=== PATIENT | female | born 1950 | race Caucasian/White ===

== ENCOUNTER → 2021-07-16 10:29 | Outpatient (CLI) | payer MEDICARE, SELFPAY ==
[2021-07-16 13:56] LABS: Alanine Aminotransferase 73 IU/L (<35); Albumin 4.6 g/dL (3.5-5.0); Albumin Globulin Ratio 1.4 (1.0-2.8); Alkaline Phosphatase 67 U/L (38-126); Aspartate Aminotransferase 77 IU/L (14-36); BUN Creatinine Ratio 21.6 (6-22); Bilirubin Total 0.7 mg/dL (0.2-1.3); Blood Urea Nitrogen 16 mg/dL (7-17); Calcium 10.2 mg/dL (8.4-10.2); Carbon Dioxide 27 mmol/L (22-32); Chloride 103 mmol/L (98-107); Cholesterol 188 mg/dL (140-199); Estimated Glomerular Filt Rate > 60.0 mL/min (>60); Globulin 3.2 g/dL (1.7-4.1); Glucose 124 mg/dL (80-110); HDL Cholesterol 34 mg/dL (40-60); HEMOLYSIS < 15 (0-50); LDL Cholesterol Calculated 80 mg/dL (<100); Potassium 4.3 mmol/L (3.4-5.1); Sodium 140 mmol/L (137-145); Total Protein 7.8 g/dL (6.3-8.2); Triglycerides 371 mg/dL (35-150)
[2021-07-16 15:22] LABS: Microalbumin Urine Random 1.3 mg/dL (0-1.6)
== END ==
PROVIDERS: PCP Family Medicine; Referring Provider Family Medicine; Visit Provider Family Medicine
DX: E11.9 Type 2 diabetes mellitus without complications (principal)
CPT/HCPCS: 36415; 80053; 80061; 82043; 82570; 83036

== ENCOUNTER → 2021-07-23 15:40 | Outpatient (CLI) | payer MEDICARE, SELFPAY ==
--- NOTE | 2021-07-23 15:44 | DI.US.S_ITS ---
PROCEDURE: US CAROTID DOPPLER BI INDICATIONS: DIZZY TECHNIQUE: Color and pulse Doppler interrogation was performed of both carotid systems, with image documentation and velocity measurements. COMPARISON: None. FINDINGS: Stenosis calculations are based on SRU (Society of Radiologists in Ultrasound) criteria. Right side: Brachial blood pressure: 138/80 mm Hg. Common carotid artery peak systolic velocity: 117 cm/sec. Internal carotid artery peak systolic velocity: 134 cm/sec. Internal carotid artery end diastolic velocity: 39 cm/sec. External carotid artery peak systolic velocity: 99 cm/sec. ICA/CCA peak systolic ratio: 1.2 Smith scale imaging description: Mild atherosclerotic changes are seen. Percent internal carotid artery stenosis: 50-69% by velocity criteria. Vertebral artery: Flow direction is antegrade. Left side: Brachial blood pressure: 140/77 mm Hg. Common carotid artery peak systolic velocity: 147 cm/sec. Internal carotid artery peak systolic velocity: 130 cm/sec. Internal carotid artery end diastolic velocity: 32 cm/sec. External carotid artery peak systolic velocity: 89 cm/sec. ICA/CCA peak systolic ratio: 0.9 Smith scale imaging description: Minimal atherosclerotic change can be seen. Percent internal carotid artery stenosis: 50-69% by velocity criteria. Vertebral artery: Flow direction is antegrade. IMPRESSION: Moderate stenosis can be seen involving each proximal internal carotid artery, which are rated by velocity criteria to be between 50 and 69%.The true degree of stenosis is felt most likely to be at the lower end of this range. Dictated by: Fidencio Brock M.D. on 07/23/2021 at 15:39 Approved by: Fidencio Brock M.D. on 07/23/2021 at 15:40
--- NOTE | 2021-07-23 16:26 | DI.RAD.S_ITS ---
PROCEDURE: XR CERVICAL SPINE 2V OR 3V INDICATIONS: dizzy TECHNIQUE: 3 view(s) of the cervical spine were acquired. COMPARISON: None. FINDINGS: Bones: No fractures or dislocations to the T1 level. Multilevel disc space narrowing and endplate osteophyte formation, worst at C3-C4, C4-C5, and C5-C6, indicating degenerative disc disease. Facet hypertrophy throughout the mid and lower cervical spine. Mild grade 1 retrolisthesis of C4 on C5. The lateral masses of C1 appear intact on the odontoid view. No suspicious bony lesions. Soft tissues: No prevertebral soft tissue swelling. IMPRESSION: Multilevel degenerative disc and facet disease. No acute fracture. No osseous lesion. If symptoms and/or clinical suspicion for pathology persist, further assessment with repeat, or advanced imaging (e.g., CT, MRI, or bone scan) may be helpful for further assessment. Dictated by: Sara Marinelli M.D. on 07/23/2021 at 16:39 Approved by: Sara Marinelli M.D. on 07/23/2021 at 16:40
== END ==
PROVIDERS: PCP Family Medicine; Referring Provider Family Medicine; Visit Provider Family Medicine
DX: I65.23 Occlusion and stenosis of bilateral carotid arteries (principal); M50.31 Other cervical disc degeneration, high cervical region; R42 Dizziness and giddiness
CPT/HCPCS: 72040; 93880

== ENCOUNTER → 2022-02-06 10:22 | Outpatient (CLI) | payer MEDICARE, SELFPAY ==
[2022-02-06 12:42] LABS: Alanine Aminotransferase 89 IU/L (<35); Albumin 4.4 g/dL (3.5-5.0); Albumin Globulin Ratio 1.3 (1.0-2.8); Alkaline Phosphatase 61 U/L (38-126); Aspartate Aminotransferase 113 IU/L (14-36); Bilirubin Total 0.5 mg/dL (0.2-1.3); Blood Urea Nitrogen 15 mg/dL (7-17); Calcium 9.4 mg/dL (8.4-10.2); Carbon Dioxide 28 mmol/L (22-32); Chloride 102 mmol/L (98-107); Estimated Glomerular Filt Rate > 60 mL/min (>60); Globulin 3.3 g/dL (1.7-4.1); Glucose 140 mg/dL (80-110); HEMOLYSIS < 15 (0-50); Potassium 4.2 mmol/L (3.4-5.1); Sodium 138 mmol/L (137-145); Total Protein 7.7 g/dL (6.3-8.2)
== END ==
PROVIDERS: PCP Family Medicine; Referring Provider Family Medicine; Visit Provider Family Medicine
DX: E11.9 Type 2 diabetes mellitus without complications (principal)
CPT/HCPCS: 36415; 80053; 83036

== ENCOUNTER → 2022-05-11 10:27 | Outpatient (CLI) | payer MEDICARE, SELFPAY ==
[2022-05-11 11:27] LABS: Hemoglobin A1C% w Est Avg Glu 7.4 % (4.0-6.0)
[2022-05-11 11:44] LABS: Alanine Aminotransferase 79 IU/L (<35); Albumin 4.6 g/dL (3.5-5.0); Albumin Globulin Ratio 1.3 (1.0-2.8); Alkaline Phosphatase 68 U/L (38-126); Aspartate Aminotransferase 109 IU/L (14-36); Bilirubin Total 0.6 mg/dL (0.2-1.3); Bilirubin Unconjugated 0.6 mg/dL (0.0-1.1); Blood Urea Nitrogen 19 mg/dL (7-17); Calcium 9.7 mg/dL (8.4-10.2); Carbon Dioxide 26 mmol/L (22-32); Chloride 101 mmol/L (98-107); Cholesterol 185 mg/dL (140-199); Estimated Glomerular Filt Rate > 60 mL/min (>60); Globulin 3.6 g/dL (1.7-4.1); Glucose 143 mg/dL (80-110); HDL Cholesterol 31 mg/dL (40-60); HEMOLYSIS < 15 (0-50); Potassium 4.2 mmol/L (3.4-5.1); Sodium 138 mmol/L (137-145); Total Protein 8.2 g/dL (6.3-8.2); Triglycerides 456 mg/dL (35-150)
== END ==
PROVIDERS: PCP Family Medicine; Referring Provider Family Medicine; Visit Provider Family Medicine
DX: E11.9 Type 2 diabetes mellitus without complications (principal); K76.0 Fatty (change of) liver, not elsewhere classified
CPT/HCPCS: 36415; 80053; 80061; 80076; 83036

== ENCOUNTER → 2022-05-26 12:07 | Outpatient (CLI) | payer MEDICARE, SELFPAY ==
--- NOTE | 2022-05-26 12:08 | DI.US.S_ITS ---
PROCEDURE: US ABDOMEN LIMITED INDICATIONS: FATTY LIVER TECHNIQUE: Real-time focused scanning was performed of the abdomen, with image documentation. COMPARISON: None. FINDINGS: The liver demonstrates mildly enlarged size. The liver demonstrates generalized moderately increased echogenicity. This decreases ultrasound sensitivity for detection of hepatic masses. A 3 mm mobile gallstone can be seen. The gallbladder wall is not thickened, measuring 3 mm or less. No specific pericholecystic fluid is seen. The sonographic Retana sign is negative. There is no biliary dilatation, the common bile duct measures 3-4 mm. The pancreas is not well seen, secondary to overlying bowel gas. IMPRESSION: An enlarged, fatty liver can be seen. A single mobile gallstone is seen, yet without additional sonographic signs of cholecystitis. Negative for biliary dilatation. Please correlate with physical examination findings, patient presentation, and laboratory values. Dictated by: Fidencio Brock M.D. on 05/26/2022 at 11:53 Approved by: Fidencio Brock M.D. on 05/26/2022 at 11:54
== END ==
PROVIDERS: PCP Family Medicine; Referring Provider Family Medicine; Visit Provider Family Medicine
DX: K76.0 Fatty (change of) liver, not elsewhere classified (principal); K80.20 Calculus of gallbladder without cholecystitis without obstruction
CPT/HCPCS: 76705

== ENCOUNTER 2022-07-20 12:42 | Emergency (ER) | payer MEDICARE, SELFPAY ==
[2022-07-20 12:57] VITALS: BP 143/63; PULSE 88; RESP 18; TEMP 37.1; O2SAT 97; BMI 31.1
--- NOTE | 2022-07-20 13:02 | DI.RAD.S_ITS ---
PROCEDURE: XR CHEST 1V INDICATIONS: chest pain TECHNIQUE: One view of the chest was acquired. COMPARISON: None. FINDINGS: Surgical changes and devices: None. Lungs and pleura: Lungs are clear. No pleural effusions or pneumothorax. Mediastinum: Mediastinal contours appear normal. Heart size is normal. Bones and chest wall: No suspicious bony lesions. Overlying soft tissues appear unremarkable. IMPRESSION: No acute cardiopulmonary abnormality. Dictated by: Nino Uriostegui M.D. on 07/20/2022 at 13:37 Approved by: Nino Uriostegui M.D. on 07/20/2022 at 13:42
[2022-07-20 13:35] LABS: Add Manual Diff / Slide Review NO; Basophils Absolute Auto 0 /uL (0-100); Basophils Percent Auto 0.6 % (0-2); Eosinophils Absolute Auto 100 /uL (0-450); Eosinophils Percent Auto 1.8 % (2-4); Hematocrit 34.8 % (36-46); Hemoglobin 11.5 g/dL (12.0-16.0); Lymphocytes Absolute Auto 1200 /uL (1100-4500); Lymphocytes Percent Auto 22.6 % (25-40); Mean Corpuscular HGB Conc 33.1 % (30-36); Mean Corpuscular Hemoglobin 26.8 PG (26-34); Monocytes Absolute Auto 400 /uL (0-900); Monocytes Percent Auto 7.1 % (3-14); Neutrophils Absolute Auto 3700 /uL (1500-7000); Neutrophils Percent Auto 67.9 % (50-75); Platelet Count 208 X10^3/uL (150-400); Red Cell Distribution Width 15.4 % (11.6-14.8); White Blood Cell Count 5.4 X10^3/uL (4.5-11.0)
[2022-07-20 13:47] LABS: Alanine Aminotransferase 90 IU/L (<35); Albumin 4.7 g/dL (3.5-5.0); Albumin Globulin Ratio 1.2 (1.0-2.8); Alkaline Phosphatase 60 U/L (38-126); Aspartate Aminotransferase 112 IU/L (14-36); BUN Creatinine Ratio 28.8 (6-22); Bilirubin Total 0.6 mg/dL (0.2-1.3); Blood Urea Nitrogen 19 mg/dL (7-17); Calcium 10.2 mg/dL (8.4-10.2); Carbon Dioxide 24 mmol/L (22-32); Chloride 101 mmol/L (98-107); Creatine Kinase 48 U/L (30-135); Estimated Glomerular Filt Rate > 60 mL/min (>60); Globulin 3.9 g/dL (1.7-4.1); Glucose 124 mg/dL (80-110); HEMOLYSIS < 15 (0-50); INR 1.1 (0.9-1.3); Lipase 209 U/L (23-300); Magnesium 1.5 mg/dL (1.6-2.3); Potassium 4.2 mmol/L (3.4-5.1); Sodium 140 mmol/L (137-145); Total Protein 8.6 g/dL (6.3-8.2)
[2022-07-20 13:49] LABS: PTT Partial Thromboplastin Tim 28 SECONDS (26-36)
[2022-07-20 13:57] LABS: Troponin I < 0.012 ng/mL (0.01-0.034)
[2022-07-20 14:44] LABS: Appearance Urine UA CLEAR; Bilirubin Urine UA NEGATIVE (NEGATIVE); Color Urine UA LT. YELLOW; Glucose Urine UA 3+ g/dL (Negative); Ketones Urine UA TRACE (NEGATIVE); Leukocyte Esterase Urine UA NEGATIVE (NEGATIVE); Nitrite Urine UA NEGATIVE (Negative); Occult Blood Urine UA NEGATIVE (Negative); Protein Urine UA NEGATIVE (Negative); Urobilinogen Urine UA 0.2 E.U./dL (0.2)
[2022-07-20 14:45] LABS: pH Urine UA 5.5 (4.5-8.0)
[2022-07-20 14:52] LABS: Bacteria Urine Moderate (10-30); Culture Indicated Urine Specimen Cultured; RBC Urine None Seen (0-5/HPF); Squamous Epithelial Cell Urine 5-10 /HPF (0-5/HPF); WBC Urine 5-10/HPF (0-5/HPF)
[2022-07-20 15:03] LABS: COVID19 -Nasal RAPID Negative (Negative)
--- NOTE | 2022-07-20 15:36 | DI.CT.S_ITS ---
PROCEDURE: CT HEAD/BRAIN WO CON INDICATIONS: dizzy syncope TECHNIQUE: Noncontrast 4.5 mm thick angled axial sections acquired from the foramen magnum to the vertex, with coronal and sagittal reformats. For radiation dose reduction, the following was used: automated exposure control, adjustment of mA and/or kV according to patient size. COMPARISON: None. FINDINGS: Image quality: Excellent. CSF spaces: Basal cisterns are patent. No extra-axial fluid collections. The ventricles are symmetric in size and shape. Brain: No intracranial bleeds or masses. There is cerebral volume loss for age, with resultant ventricular and sulcal prominence. There are periventricular and deep white matter chronic small vessel ischemic changes. There is intracranial internal carotid artery atherosclerosis. Skull and face: Calvarium and visualized facial bones appear intact, without suspicious lesions. Sinuses: Visualized sinuses and mastoids are clear. IMPRESSION: No evidence acute intracranial process. Dictated by: Michael Kathleen M.D. on 07/20/2022 at 16:39 Approved by: Michael Kathleen M.D. on 07/20/2022 at 16:39
--- NOTE | 2022-07-20 15:37 | ED_ITS ---
HPI - Dizziness General Chief Complaint: Dizziness Stated Complaint: Feels like passing out Time Seen by Provider: 07/20/22 13:24 Mode of arrival: Family Vehicle History of Present Illness HPI Narrative: Patient is a 72-year-old female history of diabetes hyperlipidemia fatty liver presenting today with dizziness. According to previous PCP note 1 year ago she was reported having dizziness at that time. Around [place] time she had a syncopal episode while sitting down thought to be related to a UTI which was diagnosed later in your jaw on the 04 of July. She was dizzy and lightheaded and Celi she went to an emergency department in [place] she was not seen for her syncopal episode in May there she reportedly had a full workup and diagnosed with a UTI put on about 10-14 days of cephalexin which she finished last week. Denies any fever chills painful frequent urination vaginal itching abdominal pain nausea vomiting. Though she is had dizziness on and off for awhile. She previously had a carotid Doppler which did show moderate stenos is of 50-69%. Related Data Previous Rx's Medication Instructions Recorded citalopram 20 mg tablet 20 mg PO DAILY #90 tabs 08/12/21 citalopram 40 mg tablet 40 mg PO DAILY #90 tabs 08/12/21 fenofibric acid (choline) 135 mg 135 mg PO DAILY #90 caps 08/12/21 capsule,delayed release lisinopril 2.5 mg tablet 2.5 mg PO DAILY #90 tabs 08/12/21 omega-3 acid ethyl esters 1 gram 2 cap PO DAILY #180 caps 08/12/21 capsule atorvastatin 80 mg tablet 80 mg PO DAILY #90 tabs 05/12/22 empagliflozin 25 mg tablet See Rx Instructions .Route 06/12/22 (Jardiance) .COMPLEX #90 tabs metformin 1,000 mg tablet 1,000 mg PO BID #180 tabs 06/30/22 Allergies Allergy/AdvReac Type Severity Reaction Status Date / Time No Known Drug Allergies Allergy Verified 07/20/22 13:01 Review of Systems Review of Systems ROS Unobtainable: All systems reviewed & are unremarkable except as noted in HPI and below Patient History Medical History Depression (~1959) Diabetes mellitus (~2004) Foot pain (~2018) Hepatitis A (~1967) Hyperlipidemia (~1986) Irritable bowel syndrome (~1969) Osteoporosis (~2009) Scoliosis (~1994) Shoulder pain (~1999) Steatosis of liver Surgical History Anesthesia H/O skin graft (~1956) History of appendectomy (~2005) History of facelift (~1992) History of tonsillectomy (~1959) Hx of cataract surgery (~1999) Family History Father Heart disease Hypertension Mental health disorder Mother Alzheimer's dementia Brother Mental health disorder Hypertension High cholesterol Brother Pulmonary embolism Mental health disorder Social History Smoking Status: Never smoker second hand exposure: No alcohol intake: current substance use type: does not use Smoking Status: Never smoker alcohol intake frequency: 0-2 drinks per day Substance Use Type: does not use Exam Initial Vital Signs Initial Vital Signs: Vital Signs Temperature 98.7 F 07/20/22 12:57 Pulse Rate 88 07/20/22 12:57 Respiratory Rate 18 07/20/22 12:57 Blood Pressure 143/63 H 07/20/22 12:57 Pulse Oximetry 97 07/20/22 12:57 Oxygen Delivery Method 07/20/22 12:57 GENERAL: Alert pleasant 72-year-old female and in no acute distress. HEENT: Head atraumatic,EOMI, pupils reactive, face symmetric, moist mucous membranes CARDIOVASCULAR: Regular rate and rhythm without murmurs, rubs or gallops. RESPIRATORY: Breath sounds equal bilaterally, no wheezes rales or rhonchi. ABDOMEN: Soft, nontender. Normoactive bowel sounds all 4 quadrants. No guarding or rebound. EXTREMITIES: Normal range of motion, no clubbing or edema. Neurovascularly intact NEUROLOGICAL: Alert and oriented x4.Normal gait and speech. Cranial nerves II through XII grossly intact. Good [id number], good [id number]-[id number], strength equal bilaterally, no dysarthria or aphasia, sensation in tact to soft touch bilaterally, no visual changes, no facial droop SKIN: Warm, dry, no laceration, no petechiae, no rashes or lesions. Scores NIH Stroke Scale Level of Conciousness: Alert, keenly responsive Ask month/age: Answers both questions correctly. Open/close eyes, close hand: Performs both tasks correctly Best gaze horizontal: Normal Visual cannon: No visual loss Facial palsy: Normal symetrical movement Left arm drift: No drift for full 10 sec Right arm drift: No drift for full 10 sec Left leg drift: No drift for full 5 sec Right leg drift: No drift for full 5 sec Limb ataxia: Absent Sensory on face/arms/legs: Normal, no sensory loss Best language: No aphasia, normal Dysarthria: Normal Extinction or inattention: No abnormality Total NIH Stroke scale score: 0 Course Orders Ordered: ED Orders 07/20/22 13:00 Urinalysis and Microscopic Stat Urine Culture Stat 07/20/22 13:02 XR chest 1V Stat EKG-12 Lead Stat 07/20/22 13:20 Complete Blood Count AUTO DIFF Stat Comprehensive Metabolic Panel Stat Lipase Stat Magnesium Stat Partial Thromboplastin Time Stat Prothrombin Time INR Stat Troponin & CK Cardiac Panel Stat 07/20/22 14:40 COVID19 -Nasal RAPID/Pre-Proc Stat 07/20/22 15:36 CT head/brain wo con Stat Discontinued Medications Aspirin (Aspirin 81 Mg Chew Tab) 324 mg PO NOW ONE Stop: 07/20/22 13:03 Last Admin: 07/20/22 15:45 Dose: Not Given Documented By: SB Vital Signs Vital signs: Vital Signs - 8 hr 07/20/22 12:57 07/20/22 17:30 07/20/22 17:23 Temperature 98.7 F Pulse Rate 88 83 82 Respiratory Rate 18 Blood Pressure 143/63 H 113/59 L Pulse Oximetry 97 94 94 Oxygen Delivery Method Room Air Room Air MDM - Dizziness Lab Data Result diagrams: 07/20/22 13:20 07/20/22 13:20 Labs: Lab Results 07/20/22 07/20/22 07/20/22 Range/Units 13:00 13:20 13:20 WBC 5.4 (4.5-11.0) X10^3/uL RBC 4.30 (4.0-5.2) X10^6/uL Hgb 11.5 L (12.0-16.0) g/dL Hct 34.8 L (36-46) % MCV 81.0 (80-100) fL MCH 26.8 (26-34) PG MCHC 33.1 (30-36) % RDW 15.4 H (11.6-14.8) % Plt Count 208 (150-400) X10^3/uL Neut % (Auto) 67.9 (50-75) % Lymph % (Auto) 22.6 L (25-40) % [place] % (Auto) 7.1 (3-14) % Eos % (Auto) 1.8 L (2-4) % Baso % (Auto) 0.6 (0-2) % Neut # (Auto) 3700 (9808-8339) /uL Lymph # (Auto) 1200 (2044-3775) /uL [place] # (Auto) 400 (0-900) /uL Eos # (Auto) 100 (0-450) /uL Baso # (Auto) 0 (0-100) /uL PT 13.0 H (10.1-12.7) SECONDS INR 1.1 (0.9-1.3) APTT 28 (26-36) SECONDS Sodium (137-145) mmol/L Potassium (3.4-5.1) mmol/L Chloride (98-107) mmol/L Carbon Dioxide (22-32) mmol/L BUN (7-17) mg/dL Creatinine (0.52-1.04) mg/dL Estimated GFR (>60) mL/min BUN/Creatinine Ratio (6-22) Glucose (80-110) mg/dL Calcium (8.4-10.2) mg/dL Magnesium (1.6-2.3) mg/dL Total Bilirubin (0.2-1.3) mg/dL AST (14-36) IU/L ALT (<35) IU/L Alkaline Phosphatase (38-126) U/L Total Creatine Kinase (30-135) U/L CK-MB (CK-2) CK-MB (CK-2) Rel Index Troponin I (0.01-0.034) ng/mL Total Protein (6.3-8.2) g/dL Albumin (3.5-5.0) g/dL Globulin (1.7-4.1) g/dL Albumin/Globulin Ratio (1.0-2.8) Lipase (23-300) U/L Urine Color Lt. yellow Urine Appearance Clear Urine pH 5.5 (4.5-8.0) Ur Specific [place] 1.020 (1.000-1.035) Urine Protein Negative (Negative) Urine Glucose (UA) 3+ H (Negative) g/dL Urine Ketones Trace H (NEGATIVE) Urine Occult Blood Negative (Negative) Urine Nitrate Negative (Negative) Urine Bilirubin Negative (NEGATIVE) Urine Urobilinogen 0.2 (0.2) E.U./dL Ur Leukocyte Esterase Negative (NEGATIVE) Urine RBC None seen (0-5/HPF) Urine WBC 5-10/hpf H (0-5/HPF) Ur Squamous Epith Cells 5-10 /hpf H (0-5/HPF) Urine Bacteria Moderate (10-30) H (None) Urine Yeast 1-5/hpf H (None) Ur Culture Indicated? Specimen cultured SARS-CoV-2 (PCR) (Negative) 07/20/22 07/20/22 Range/Units 13:20 14:40 WBC (4.5-11.0) X10^3/uL RBC (4.0-5.2) X10^6/uL Hgb (12.0-16.0) g/dL Hct (36-46) % MCV (80-100) fL MCH (26-34) PG MCHC (30-36) % RDW (11.6-14.8) % Plt Count (150-400) X10^3/uL Neut % (Auto) (50-75) % Lymph % (Auto) (25-40) % [place] % (Auto) (3-14) % Eos % (Auto) (2-4) % Baso % (Auto) (0-2) % Neut # (Auto) (3219-4934) /uL Lymph # (Auto) (3080-0749) /uL [place] # (Auto) (0-900) /uL Eos # (Auto) (0-450) /uL Baso # (Auto) (0-100) /uL PT (10.1-12.7) SECONDS INR (0.9-1.3) APTT (26-36) SECONDS Sodium 140 (137-145) mmol/L Potassium 4.2 (3.4-5.1) mmol/L Chloride 101 (98-107) mmol/L Carbon Dioxide 24 (22-32) mmol/L BUN 19 H (7-17) mg/dL Creatinine 0.66 (0.52-1.04) mg/dL Estimated GFR > 60 (>60) mL/min BUN/Creatinine Ratio 28.8 H (6-22) Glucose 124 H (80-110) mg/dL Calcium 10.2 (8.4-10.2) mg/dL Magnesium 1.5 L (1.6-2.3) mg/dL Total Bilirubin 0.6 (0.2-1.3) mg/dL AST 112 H (14-36) IU/L ALT 90 H (<35) IU/L Alkaline Phosphatase 60 (38-126) U/L Total Creatine Kinase 48 (30-135) U/L CK-MB (CK-2) TNP CK-MB (CK-2) Rel Index TNP Troponin I < 0.012 (0.01-0.034) ng/mL Total Protein 8.6 H (6.3-8.2) g/dL Albumin 4.7 (3.5-5.0) g/dL Globulin 3.9 (1.7-4.1) g/dL Albumin/Globulin Ratio 1.2 (1.0-2.8) Lipase 209 (23-300) U/L Urine Color Urine Appearance Urine pH (4.5-8.0) Ur Specific [place] (1.000-1.035) Urine Protein (Negative) Urine Glucose (UA) (Negative) g/dL Urine Ketones (NEGATIVE) Urine Occult Blood (Negative) Urine Nitrate (Negative) Urine Bilirubin (NEGATIVE) Urine Urobilinogen (0.2) E.U./dL Ur Leukocyte Esterase (NEGATIVE) Urine RBC (0-5/HPF) Urine WBC (0-5/HPF) Ur Squamous Epith Cells (0-5/HPF) Urine Bacteria (None) Urine Yeast (None) Ur Culture Indicated? SARS-CoV-2 (PCR) Negative (Negative) Imaging Data CT scan - head: Radiologist's Impression: ent: Naomi Rivas MR#: [id number] : 1950 Acct:[id number] Age/Sex: 72 / F Date of Service: 07/20/22 Loc: ED Accession Number: [id number] ?? Procedure: CT head/brain wo con Ordering Provider: Zena Alston D.O. PROCEDURE:? CT HEAD/BRAIN WO CON ? INDICATIONS:? dizzy syncope ? TECHNIQUE:? Noncontrast 4.5 mm thick angled axial sections acquired from the foramen magnum to the vertex, with coronal and sagittal reformats.? For radiation dose reduction, the following was used:? automated exposure control, adjustment of mA and/or kV according to patient size.? ? COMPARISON:? None. ? FINDINGS:? Image quality:? Excellent.? ? CSF spaces:? Basal cisterns are patent.? No extra-axial fluid collections.? The ventricles are symmetric in size and shape.? ? Brain:? No intracranial bleeds or masses.? There is cerebral volume loss for age, with resultant ventricular and sulcal prominence.? There are periventricular and deep white matter chronic small vessel ischemic changes.? There is intracranial internal carotid artery atherosclerosis.? ? Skull and face:? Calvarium and visualized facial bones appear intact, without suspicious lesions.? ? Sinuses:? Visualized sinuses and mastoids are clear.? ? IMPRESSION:? No evidence acute intracranial process. ? ? Dictated by: Michael Kathleen M.D. on 07/20/2022 at 16:39 ? ? Approved by: Michael Kathleen M.D. on 07/20/2022 at 16:39 ? Chest x-ray: Radiologist's Impression: Signed Patient: Naomi Rivas MR#: [id number] : 1950 Acct:[id number] Age/Sex: 72 / F Date of Service: 07/20/22 Loc: ED Accession Number: [id number] ?? Procedure: XR chest 1V Ordering Provider: Zena Aslton D.O. PROCEDURE:? XR CHEST 1V ? INDICATIONS:? chest pain ? TECHNIQUE:? One view of the chest was acquired.? ? COMPARISON:? None. ? FINDINGS:? ? Surgical changes and devices:? None.? ? Lungs and pleura:? Lungs are clear.? No pleural effusions or pneumothorax.? ? Mediastinum:? Mediastinal contours appear normal.? Heart size is normal.? ? Bones and chest wall:? No suspicious bony lesions.? Overlying soft tissues priyank ear unremarkable.? ? IMPRESSION:? No acute cardiopulmonary abnormality. ? ? ? Dictated by: Nino Uriostegui M.D. on 07/20/2022 at 13:37 ? ? Approved by: Nino Uriostegui M.D. on 07/20/2022 at 13:42 ? ECG Data Interpretation: Normal sinus rhythm rate 81 MO interval 168 QRS [address] changes Q-wave noted in lead 3 low voltage noted no ischemic changes MDM Narrative Medical decision making narrative: Patient is a 72-year-old female presenting today with dizziness. She did not feel quite right today. But did not pass out. She previously had a UTI she is treated with cephalexin. No evidence sepsis today. Previous workup of her longstanding dizziness according to the chart did show some moderate stenosis of her carotids. This will need to be looked at again as an outpatient. Hesitant to put her on another course of antibiotics after she just finished what seems to be a really long course without any signs of sepsis. Will wait for urine culture and sensitivity. Patient is not any symptomatic from this either MDM * differential diagnosis includes but not limited to: Vertigo, non vertigo, carotid stenosis, UTI, sepsis * Prior records reviewed: Previous PCP note from 1 year ago * My lab interpretation: A no leukocytosis renal function electrolytes within normal limits magnesium slightly low 1.5, urine does show wbc's with bacteria and yeast questionable clean catch wait for culture and sensitivity * My imaging interpretation: As above * Clinical Decision Rules/Scores evaluated: [ ] * Independent discussions with: [ ] * Social Considerations: [ ] * Shared Decision Making: Daughter and patient *Disposition: see below, along with detailed discharge instructions that have been reviewed with patient as well as indications for ED re-evaluation and additional outpatient follow up Discharge Plan Departure Patient Disposition: Home Clinical Impression: Dizziness Instructions: DI for Vertigo Activity Restrictions/Additional Instructions: *You have been diagnosed with dizziness *What to do: At this time for your urine culture to see if you need any more antibiotics. I do recommend that he talk to your primary care provider about a repeat carotid Doppler ultrasound. Blood work and head CT are overall reassuring today. *Continue to take medications as directed *Follow up with your primary care provider in 2-3 days or call [phone] *Return to ER if you should have dizziness passing out fever confusion or any new, worsening or concerning symptoms Prescriptions: No Action citalopram 20 mg tablet 20 mg PO DAILY Qty: 90 3RF citalopram 40 mg tablet 40 mg PO DAILY Qty: 90 3RF lisinopril 2.5 mg tablet 2.5 mg PO DAILY Qty: 90 3RF fenofibric acid (choline) 135 mg capsule,delayed release(DR/EC) 135 mg PO DAILY Qty: 90 3RF omega-3 acid ethyl esters 1 gram capsule 2 cap PO DAILY Qty: 180 3RF atorvastatin 80 mg tablet 80 mg PO DAILY Qty: 90 2RF Jardiance 25 mg tablet See Rx Instructions .ROUTE .COMPLEX Qty: 90 0RF Dose Instruction: TAKE 1 TABLET BY MOUTH DAILY Rx Instructions: TAKE 1 TABLET BY MOUTH DAILY metformin 1,000 mg tablet 1,000 mg PO BID Qty: 180 2RF Referrals: Isis Molina MD [Primary Care Provider] - Stand Alone Forms: Patient Portal/API
[2022-07-20 17:23] VITALS: PULSE 82; O2SAT 94
[2022-07-20 17:30] VITALS: BP 113/59; PULSE 83; O2SAT 94
== END 2022-07-20 17:33 | disposition home or self-care (01) ==
PROVIDERS: Emergency Provider Emergency Medicine; PCP Family Medicine
DX: R42 Dizziness and giddiness (principal); R07.9 Chest pain, unspecified; Z20.822 Contact with and (suspected) exposure to COVID-19; Z79.899 Other long term (current) drug therapy
CPT/HCPCS: 36415; 70450; 71045; 80053; 81001; 82550; 83690; 83735; 84484; 85025; 85610; 85730; 87086; 87635; 93005; 99284; C9803

== ENCOUNTER → 2022-08-10 10:28 | Outpatient (CLI) | payer MEDICARE, SELFPAY ==
--- NOTE | 2022-08-10 10:31 | DI.US.S_ITS ---
PROCEDURE: US CAROTID DOPPLER BI INDICATIONS: CAROTID STENOSIS TECHNIQUE: Color and pulse Doppler interrogation was performed of both carotid systems, with image documentation and velocity measurements. COMPARISON: [facility], , US CAROTID DOPPLER BI, 07/23/2021, 15:47. FINDINGS: Stenosis calculations are based on SRU (Society of Radiologists in Ultrasound) criteria. Right side: Brachial blood pressure: 146/77 mm Hg. Common carotid artery peak systolic velocity: 104 cm/sec. Internal carotid artery peak systolic velocity: 95 cm/sec, compared to 134 centimeters/second. Internal carotid artery end diastolic velocity: 119 cm/sec. External carotid artery peak systolic velocity: 106 cm/sec. ICA/CCA peak systolic ratio: 1.1 . Smith scale imaging description: Moderate plaque at the bifurcation Percent internal carotid artery stenosis: Less than 50% . Vertebral artery: Flow direction is antegrade. Left side: Brachial blood pressure: 143/75 mm Hg. Common carotid artery peak systolic velocity: 73 cm/sec. Internal carotid artery peak systolic velocity: 117 cm/sec., compared to 130 centimeters/second Internal carotid artery end diastolic velocity: 130 cm/sec. External carotid artery peak systolic velocity: 90 cm/sec. ICA/CCA peak systolic ratio: 1.8 . Smith scale imaging description: Moderate plaque at the bifurcation Percent internal carotid artery stenosis: Less than 50% . Vertebral artery: Flow direction is antegrade. IMPRESSION: Less than 50% stenosis of the internal carotid arteries bilaterally, slightly improved. Dictated by: Sonya Taylor M.D. on 08/10/2022 at 21:03 Approved by: Sonya Taylor M.D. on 08/10/2022 at 21:04
--- NOTE | 2022-08-10 10:31 | DI.MRI.S_ITS ---
PROCEDURE: MR STROKE Pre- and post-contrast brain MRI, non-contrast brain MR angiogram, pre- and postcontrast neck MR angiogram INDICATIONS: Vertigo, HENDRIX, syncope TECHNIQUE: Brain: Noncontrast axial T1 spin echo, axial T2 fast spin echo, sagittal and axial FLAIR, coronal T2 fast spin echo, axial gradient echo, axial diffusion and ADC through the brain. After the administration of contrast, axial 3D VIBE of the cranial vasculature and brain. Brain MRA: Non-contrast 3-D time of flight MR angiogram, with multiple rduhpha-qzdtjtngf-adyeohadxd (MIP) reformats performed. Neck MRA: Axial and sagittal TruFISP through the neck. Coronal dynamic MR angiogram during administration of contrast in the arterial and venous phases, with 3-dimenstional ygwlafx-tlrmtglfq-ugoayatddd (MIP) reformats constructed from subtraction images. COMPARISON: [facility], US, US CAROTID DOPPLER BI, 08/10/2022, 12:47. [facility], CT, CT HEAD/BRAIN WO CON, 07/20/2022, 16:04. FINDINGS: Image quality: Diagnostic, with note made of motion artifact. BRAIN: CSF spaces: Ventricles are normal in size and shape. Basal cisterns are patent. No extra-axial fluid collections. Brain: No intracranial bleeds or mass effects. Smith-white matter interface is normal. Diffusion weighted images show no acute ischemic insults. Brainstem appears normal. Normal intravascular flow voids are present. No abnormal intracranial enhancement. Note is made of age-appropriate brain parenchymal volume loss and chronic small vessel ischemic changes. Skull and face: Calvarial marrow signal is normal. Orbits appear normal. A right lens replacement can be seen. Incidental note is made of hyperostosis frontalis. This is not considered to be pathologic in a woman of this age. Sinuses: Sinuses and mastoids are clear. BRAIN MR ANGIOGRAM: Anterior circulation: Intracranial internal carotid arteries are normal in size and enhancement. The flow within the paired anterior cerebral arteries is normal and symmetric. The flow within the middle cerebral arteries is normal and symmetric. The anterior communicating artery is seen. No stenoses, occlusions, or aneurysms. Posterior circulation: The left V4 segment is normal. 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 There is a normal appearing basilar artery. There is a prominent right posterior communicating artery seen, with an accompanying diminutive right P1 segment. This is attributed to a type origin of the right posterior cerebral artery, which is considered to be a normal developmental variant of typically no clinical consequence. The flow within the posterior cerebral arteries is normal and symmetric. No stenoses, occlusions, or aneurysms. NECK MR ANGIOGRAM: Carotids: Great vessels demonstrate a conventional anatomy as they arise from the aortic arch. The origins of the common carotid arteries appear patent. The calibers and courses of both common carotid arteries are normal. The bifurcation regions appear normal bilaterally. The internal carotid arteries demonstrate normal course and caliber. Posterior circulation: The origins of the vertebral arteries appear patent. More superior portions of both vertebral arteries demonstrate normal course and caliber. The left vertebral artery is dominant to the right. Miscellaneous: Subclavian arteries appear patent. Pre-contrast images through the neck show no soft tissue abnormalities. IMPRESSION: BRAIN MRI: No findings of acute or subacute infarction can be seen. No masses or abnormal enhancement can be seen. BRAIN MR ANGIOGRAM: No acute intracranial process is seen. Tqficv-ky-Jvxiha developmental anomalies are incidentally noted. NECK MR ANGIOGRAM: Within the arteries of the neck, no hemodynamically significant stenosis can be seen. Dictated by: Fidencio Brock M.D. on 08/10/2022 at 15:42 Approved by: Fidencio Brock M.D. on 08/10/2022 at 15:46
[2022-08-10 11:07] LABS: Hemoglobin A1C% w Est Avg Glu 6.8 % (4.0-6.0)
[2022-08-10 11:31] LABS: Cholesterol 139 mg/dL (140-199); HDL Cholesterol 32 mg/dL (40-60); LDL Cholesterol Calculated 42 mg/dL (<100); Triglycerides 326 mg/dL (35-150)
[2022-08-10 11:57] LABS: TSH w/ Reflex to FT4 1.31 uIU/mL (0.47-4.68)
== END ==
PROVIDERS: PCP Family Medicine; Referring Provider Family Medicine; Visit Provider Family Medicine
DX: I65.23 Occlusion and stenosis of bilateral carotid arteries (principal); R55 Syncope and collapse; R42 Dizziness and giddiness; R51.9 Headache, unspecified; E11.9 Type 2 diabetes mellitus without complications; E78.5 Hyperlipidemia, unspecified; R25.1 Tremor, unspecified
CPT/HCPCS: 36415; 70548; 70553; 80061; 83036; 84443; 93880; A9579

== ENCOUNTER → 2022-09-15 10:40 | Outpatient (CLI) | payer MEDICARE, SELFPAY ==
[2022-09-15 12:52] LABS: Add Manual Diff / Slide Review NO; Basophils Absolute Auto 0 /uL (0-100); Basophils Percent Auto 0.6 % (0-2); Eosinophils Absolute Auto 100 /uL (0-450); Eosinophils Percent Auto 1.9 % (2-4); Hematocrit 34.9 % (36-46); Hemoglobin 11.3 g/dL (12.0-16.0); Lymphocytes Absolute Auto 1200 /uL (1100-4500); Lymphocytes Percent Auto 24.7 % (25-40); Mean Corpuscular HGB Conc 32.4 % (30-36); Mean Corpuscular Hemoglobin 26.1 PG (26-34); Mean Corpuscular Volume 80.6 fL (80-100); Monocytes Absolute Auto 300 /uL (0-900); Monocytes Percent Auto 6.1 % (3-14); Neutrophils Absolute Auto 3300 /uL (1500-7000); Neutrophils Percent Auto 66.7 % (50-75); Platelet Count 207 X10^3/uL (150-400); Red Blood Cell Count 4.33 X10^6/uL (4.0-5.2); Red Cell Distribution Width 15.6 % (11.6-14.8); White Blood Cell Count 4.9 X10^3/uL (4.5-11.0)
[2022-09-15 13:12] LABS: INR 1.1 (0.9-1.3)
[2022-09-15 13:29] LABS: Alanine Aminotransferase 79 IU/L (<35); Albumin 4.6 g/dL (3.5-5.0); Albumin Globulin Ratio 1.4 (1.0-2.8); Alkaline Phosphatase 50 U/L (38-126); Aspartate Aminotransferase 73 IU/L (14-36); BUN Creatinine Ratio 23.3 (6-22); Bilirubin Total 0.6 mg/dL (0.2-1.3); Blood Urea Nitrogen 17 mg/dL (7-17); Calcium 9.9 mg/dL (8.4-10.2); Carbon Dioxide 25 mmol/L (22-32); Chloride 104 mmol/L (98-107); Estimated Glomerular Filt Rate > 60 mL/min (>60); Globulin 3.4 g/dL (1.7-4.1); Glucose 140 mg/dL (80-110); HEMOLYSIS < 15 (0-50); Sodium 140 mmol/L (137-145)
[2022-09-15 13:32] LABS: HEMOLYSIS < 15 (0-50); Iron 49 ug/dL (37-170)
[2022-09-15 13:43] LABS: Transferrin 494 mg/dL (206-381)
[2022-09-15 14:01] LABS: Percent Iron Saturation 7 % (15-50); Total Iron Binding Capacity 713 ug/dL (265-497)
[2022-09-15 14:03] LABS: Ferritin 9 ng/mL (11-264)
[2022-09-16 10:43] LABS: Alpha 1 Anti Trypsin 172 mg/dL (101-187); Alpha Fetoprotein 2.3 ng/mL (0.0-9.2); HBsAg Screen Negative (Negative); Hepatitis A Antibody IgM Negative (Negative); Hepatitis B Core Antibody IgM Negative (Negative); Hepatitis C Antibody Non Reactive (Non Reactive)
[2022-09-17 16:56] LABS: HIV 1 & 2 Ab/Ag 4th Gen Combo NEGATIVE (NEGATIVE)
[2022-09-18 15:46] LABS: Smooth Muscle Antibody 5 Units (0-19)
== END ==
PROVIDERS: PCP Family Medicine; Referring Provider Physician Assistant; Visit Provider Physician Assistant
DX: R79.89 Other specified abnormal findings of blood chemistry (principal)
CPT/HCPCS: 36415; 80053; 80074; 82103; 82105; 82728; 83516; 83540; 83550; 85025; 85610; 87389

== ENCOUNTER → 2023-06-02 14:16 | Outpatient (CLI) | payer MEDICARE, SELFPAY ==
[2023-06-02 15:34] LABS: Add Manual Diff / Slide Review NO; Basophils Absolute Auto 0 /uL (0-100); Basophils Percent Auto 0.4 % (0-2); Eosinophils Absolute Auto 100 /uL (0-450); Eosinophils Percent Auto 0.7 % (2-4); Hematocrit 39.3 % (36-46); Hemoglobin 13.6 g/dL (12.0-16.0); Lymphocytes Absolute Auto 1800 /uL (1100-4500); Lymphocytes Percent Auto 21.5 % (25-40); Mean Corpuscular HGB Conc 34.5 % (30-36); Mean Corpuscular Hemoglobin 30.7 PG (26-34); Monocytes Absolute Auto 500 /uL (0-900); Monocytes Percent Auto 5.7 % (3-14); Neutrophils Absolute Auto 5900 /uL (1500-7000); Neutrophils Percent Auto 71.7 % (50-75); Platelet Count 225 X10^3/uL (150-400); Red Blood Cell Count 4.42 X10^6/uL (4.0-5.2); Red Cell Distribution Width 15.5 % (11.6-14.8); White Blood Cell Count 8.2 X10^3/uL (4.5-11.0)
[2023-06-02 16:02] LABS: Alanine Aminotransferase 55 IU/L (<35); Albumin 4.7 g/dL (3.5-5.0); Albumin Globulin Ratio 1.6 (1.0-2.8); Alkaline Phosphatase 43 U/L (38-126); Aspartate Aminotransferase 50 IU/L (14-36); BUN Creatinine Ratio 31.3 (6-22); Bilirubin Total 0.9 mg/dL (0.2-1.3); Blood Urea Nitrogen 21 mg/dL (7-17); Calcium 10.4 mg/dL (8.4-10.2); Carbon Dioxide 25 mmol/L (22-32); Chloride 100 mmol/L (98-107); Cholesterol 165 mg/dL (140-199); Estimated Glomerular Filt Rate > 60 mL/min (>60); Glucose 102 mg/dL (80-110); HDL Cholesterol 44 mg/dL (40-60); HEMOLYSIS < 15 (0-50); LDL Cholesterol Calculated 74 mg/dL (<100); Potassium 4.4 mmol/L (3.4-5.1); Sodium 137 mmol/L (137-145); Total Protein 7.7 g/dL (6.3-8.2); Triglycerides 233 mg/dL (35-150)
[2023-06-02 16:33] LABS: TSH w/ Reflex to FT4 0.37 uIU/mL (0.47-4.68)
[2023-06-02 17:01] LABS: Free T4, Direct Thyroxine 1.28 ng/dL (0.78-2.19)
== END ==
PROVIDERS: PCP Family Medicine; Referring Provider Family Medicine; Visit Provider Family Medicine
DX: R68.89 Other general symptoms and signs (principal); E11.9 Type 2 diabetes mellitus without complications; K74.60 Unspecified cirrhosis of liver
CPT/HCPCS: 36415; 80053; 80061; 84439; 84443; 85025

== ENCOUNTER → 2023-07-24 11:19 | Outpatient (CLI) | payer MEDICARE, SELFPAY ==
[2023-07-24 12:15] LABS: Add Manual Diff / Slide Review NO; Basophils Absolute Auto 0 /uL (0-100); Basophils Percent Auto 0.4 % (0-2); Eosinophils Absolute Auto 100 /uL (0-450); Eosinophils Percent Auto 1.1 % (2-4); Hematocrit 38.9 % (36-46); Hemoglobin 13.1 g/dL (12.0-16.0); Lymphocytes Absolute Auto 1800 /uL (1100-4500); Lymphocytes Percent Auto 26.8 % (25-40); Mean Corpuscular HGB Conc 33.7 % (30-36); Mean Corpuscular Hemoglobin 31.5 PG (26-34); Mean Corpuscular Volume 93.5 fL (80-100); Monocytes Absolute Auto 400 /uL (0-900); Monocytes Percent Auto 6.6 % (3-14); Neutrophils Absolute Auto 4300 /uL (1500-7000); Neutrophils Percent Auto 65.1 % (50-75); Platelet Count 221 X10^3/uL (150-400); Red Blood Cell Count 4.15 X10^6/uL (4.0-5.2); Red Cell Distribution Width 14.5 % (11.6-14.8); White Blood Cell Count 6.6 X10^3/uL (4.5-11.0)
[2023-07-24 12:36] LABS: Appearance Urine UA CLEAR; Bilirubin Urine UA NEGATIVE (NEGATIVE); Color Urine UA YELLOW; Glucose Urine UA 3+ g/dL (Negative); Ketones Urine UA NEGATIVE (NEGATIVE); Leukocyte Esterase Urine UA NEGATIVE (NEGATIVE); Nitrite Urine UA NEGATIVE (Negative); Occult Blood Urine UA NEGATIVE (Negative); Protein Urine UA NEGATIVE (Negative); Specific Gravity Urine UA 1.025 (1.000-1.035); Urobilinogen Urine UA 0.2 E.U./dL (0.2)
[2023-07-24 13:46] LABS: Bacteria Urine Occasional (0-1); RBC Urine 0-1/HPF (0-5/HPF); Squamous Epithelial Cell Urine 0-1 /HPF (0-5/HPF); Urine Volume 10mL (spun); WBC Urine 1-5/HPF (0-5/HPF)
[2023-07-24 13:47] LABS: Culture Indicated Urine Cult Not Indicated
[2023-07-24 15:18] LABS: Alanine Aminotransferase 49 IU/L (<35); Albumin 4.2 g/dL (3.5-5.0); Albumin Globulin Ratio 1.5 (1.0-2.8); Alkaline Phosphatase 39 U/L (38-126); Aspartate Aminotransferase 45 IU/L (14-36); BUN Creatinine Ratio 34.9 (6-22); Bilirubin Total 0.7 mg/dL (0.2-1.3); Blood Urea Nitrogen 22 mg/dL (7-17); Calcium 10.2 mg/dL (8.4-10.2); Carbon Dioxide 25 mmol/L (22-32); Chloride 105 mmol/L (98-107); Estimated Glomerular Filt Rate > 60 mL/min (>60); Globulin 2.8 g/dL (1.7-4.1); Glucose 113 mg/dL (80-110); HEMOLYSIS < 15 (0-50); Potassium 4.2 mmol/L (3.4-5.1); Sodium 140 mmol/L (137-145)
== END ==
PROVIDERS: PCP Family Medicine; Referring Provider Family Medicine; Visit Provider Family Medicine
DX: K74.00 Hepatic fibrosis, unspecified (principal); G31.84 Mild cognitive impairment of uncertain or unknown etiology; K76.0 Fatty (change of) liver, not elsewhere classified; K58.9 Irritable bowel syndrome, unspecified; F33.42 Major depressive disorder, recurrent, in full remission; E11.9 Type 2 diabetes mellitus without complications; R30.0 Dysuria
CPT/HCPCS: 36415; 80053; 81001; 85025

== ENCOUNTER 2023-07-27 20:02 | Emergency (ER) | payer MEDICARE, SELFPAY ==
[2023-07-27] VITALS (7 sets, daily range): BP systolic 125–143; BP diastolic 59–63; PULSE 76–83; RESP 16–18; TEMP 36.2; O2SAT 92–96; BMI 24.6
--- NOTE | 2023-07-27 20:07 | DI.MRI.S_ITS ---
P normal ROCEDURE: MR HEAD/BRAIN WO/W CON INDICATIONS: mass TECHNIQUE: Noncontrast axial T1 spin echo, axial T2 fast spin echo, sagittal and axial FLAIR, coronal T2 fast spin echo, axial gradient echo, axial diffusion and ADC through the brain. After the administration of contrast, axial and coronal and sagittal 3D VIBE or T1 spin echo with fat saturation through the brain. COMPARISON: [facility], CT, CT HEAD/BRAIN WO CON, 07/20/2022, 16:04. [facility], MR, MR STROKE, 08/10/2022, 11:57. FINDINGS: Image quality: Excellent. CSF Spaces: Basal cisterns are patent. No extra-axial fluid collections. Ventricles are normal in size and shape. Brain: Enhancing, cystic and solid mass in the left temporal lobe measuring 3.5 x 3.4 x 4.2 cm. Significant vasogenic edema and mass effect, resulting in a 5 mm left right midline shift. Skull and face: Calvarial marrow is normal in signal. Orbits appear normal. Sinuses: Sinuses and mastoids appear clear. IMPRESSION: Left temporal mass with cystic and solid components measuring 3.5 x 3.4 x 4.2 cm. Associated vasogenic edema and 5 mm left to right midline shift. No herniation. Dictated by: Adiel Chilel M.D. on 07/27/2023 at 21:04 Approved by: Adiel Chilel M.D. on 07/27/2023 at 21:08
--- NOTE | 2023-07-27 20:11 | ED_ITS ---
HPI - Recheck/Abnormal Lab/Rx General Chief Complaint: Recheck/Abnormal Lab/Rx Stated Complaint: referral from radiology Time Seen by Provider: 07/27/23 20:04 Source: patient Mode of arrival: Ambulatory History of Present Illness HPI narrative: 73-year-old female with history of hyperlipidemia, lmh-pucarev-swbtkepcs diabetes presents from the MRI room for brain mass. History is obtained mostly from daughter at bedside. Daughter states that patient has had intermittent memory problems for quite some time which they believed to be early onset dementia, however in the last 2 weeks the patient had a precipitous decline in her memory and function. She had a noticeable drop in her ability to remember things, her ability to find words, and seemed very out of it and confused. She was able to get her primary care doctor to arrange an MRI. I spoke to Dr. Taylor of radiology, who stated that preliminary read of the MRI showed a large temporal brain mass with mass effect and referred her to the ER for additional workup. Related Data Previous Rx's Medication Instructions Recorded fenofibric acid (choline) 135 mg See Rx Instructions .Route 11/09/22 capsule,delayed release .COMPLEX #90 caps omega-3 acid ethyl esters 1 gram See Rx Instructions .Route 11/09/22 capsule .COMPLEX #180 caps atorvastatin 80 mg tablet 80 mg PO DAILY #90 tabs 02/12/23 lisinopril 2.5 mg tablet See Rx Instructions .Route 02/16/23 .COMPLEX #90 tabs citalopram 20 mg tablet 20 mg PO DAILY #90 tabs 02/18/23 empagliflozin 25 mg tablet 25 mg PO DAILY #90 tabs 03/15/23 (Jardiance) metformin 1,000 mg tablet 1,000 mg PO BID #180 tabs 05/13/23 Allergies Allergy/AdvReac Type Severity Reaction Status Date / Time No Known Drug Allergies Allergy Verified 07/27/23 20:06 Review of Systems Review of Systems Narrative: Negative except as noted above Patient History Medical History Liver fibrosis Steatosis of liver Depression (~1958) Shoulder pain (~1999) Scoliosis (~1994) Osteoporosis (~2009) Foot pain (~2018) Hepatitis A (~1967) Irritable bowel syndrome (~1969) Diabetes mellitus (~2004) Hyperlipidemia (~1986) Surgical History Anesthesia H/O skin graft (~1956) History of facelift (~1992) Hx of cataract surgery (~1999) History of tonsillectomy (~1959) History of appendectomy (~2005) Family History Father Heart disease Hypertension Mental health disorder Mother Alzheimer's dementia Brother Mental health disorder Hypertension High cholesterol Brother Pulmonary embolism Mental health disorder Social History Smoking Status: Never smoker second hand exposure: No alcohol intake: current substance use type: does not use Smoking Status: Never smoker alcohol intake frequency: 0-2 drinks per day Substance Use Type: does not use Exam Initial Vital Signs Initial Vital Signs: Vital Signs Temperature 97.2 F L 07/27/23 20:06 Pulse Rate 83 07/27/23 20:06 Respiratory Rate 18 07/27/23 20:06 Blood Pressure 138/61 07/27/23 20:06 Pulse Oximetry 94 07/27/23 20:06 Oxygen Delivery Method Room Air 07/27/23 20:06 Const: Awake, alert, no acute distress, nontoxic appearing Cardiac: regular rate, regular rhythm RESP: unlabored, clear bilaterally, no wheezing GI: Atraumatic, soft, nontender, nondistended, no rebound, no guarding Skin: Warm, Dry, intact, no rashes Neuro: AO x2, moderate expressive aphasia, very delayed when following commands Course Orders Ordered: ED Orders 07/27/23 20:07 MR head/brain wo/w con Stat 07/27/23 20:31 Complete Blood Count AUTO DIFF Stat Comprehensive Metabolic Panel Stat Lipase Stat Prothrombin Time INR Stat Discontinued Medications Dexamethasone (Dexamethasone 10 Mg/Ml Vial) 8 mg IV NOW ONE Stop: 07/27/23 21:26 Last Admin: 07/27/23 21:29 Dose: 8 mg Documented By: RENEE Levetiracetam 1,000 mg/ Sodium (Chloride) 110 mls @ 440 mls/hr IV NOW ONE Stop: 07/27/23 22:04 Last Infusion: 07/27/23 23:10 Dose: Infused Documented By: Admin: 07/27/23 22:09 Dose: 440 mls/hr Documented By: RENEE Vital Signs Vital signs: Vital Signs - 8 hr 07/27/23 20:06 07/27/23 21:30 07/27/23 21:45 Temperature 97.2 F L Pulse Rate 83 82 81 Respiratory Rate 18 16 Blood Pressure 138/61 125/60 Pulse Oximetry 94 94 94 Oxygen Delivery Method Room Air Room Air Room Air 07/27/23 22:00 07/27/23 22:00 07/27/23 22:30 Temperature Pulse Rate 77 Respiratory Rate Blood Pressure 143/63 H 133/61 Pulse Oximetry 96 Oxygen Delivery Method Room Air 07/27/23 22:30 07/27/23 23:00 07/27/23 23:00 Temperature Pulse Rate 79 78 Respiratory Rate Blood Pressure 134/63 Pulse Oximetry 94 93 Oxygen Delivery Method Room Air Room Air MDM - Recheck/Abnormal Lab/Rx Differential Diagnosis Differential diagnosis: Likely other (meningioma, glioblastoma, tumor) Lab Data 07/27/23 20:31 07/27/23 20:31 Labs: Lab Results 07/27/23 Range/Units 20:31 WBC 9.5 (4.5-11.0) X10^3/uL RBC 4.36 (4.0-5.2) X10^6/uL Hgb 13.4 (12.0-16.0) g/dL Hct 39.8 (36-46) % MCV 91.3 (80-100) fL MCH 30.8 (26-34) PG MCHC 33.7 (30-36) % RDW 14.0 (11.6-14.8) % Plt Count 239 (150-400) X10^3/uL Neut % (Auto) 71.1 (50-75) % Lymph % (Auto) 21.8 L (25-40) % [place] % (Auto) 5.7 (3-14) % Eos % (Auto) 1.1 L (2-4) % Baso % (Auto) 0.3 (0-2) % Neut # (Auto) 6800 (3512-3717) /uL Lymph # (Auto) 2100 (8214-0436) /uL [place] # (Auto) 500 (0-900) /uL Eos # (Auto) 100 (0-450) /uL Baso # (Auto) 0 (0-100) /uL PT 13.3 H (9.4-12.5) SECONDS INR 1.2 (0.9-1.3) Sodium 139 (137-145) mmol/L Potassium 3.9 (3.4-5.1) mmol/L Chloride 102 (98-107) mmol/L Carbon Dioxide 24 (22-32) mmol/L BUN 34 H (7-17) mg/dL Creatinine 0.98 (0.52-1.04) mg/dL Estimated GFR > 60 (>60) mL/min BUN/Creatinine Ratio 34.7 H (6-22) Glucose 117 H (80-110) mg/dL Calcium 11.1 H (8.4-10.2) mg/dL Total Bilirubin 0.7 (0.2-1.3) mg/dL AST 44 H (14-36) IU/L ALT 46 H (<35) IU/L Alkaline Phosphatase 47 (38-126) U/L Total Protein 7.9 (6.3-8.2) g/dL Albumin 4.7 (3.5-5.0) g/dL Globulin 3.2 (1.7-4.1) g/dL Albumin/Globulin Ratio 1.5 (1.0-2.8) Lipase 131 (23-300) U/L MDM Narrative Medical decision making narrative: Two weeks of precipitous decline in patient's functional status. Abnormal MRI on outpatient study, referred to the ER for additional imaging. Patient does seem to have marked word-finding difficulties and difficulty in following commands. Hemodynamically stable, not on blood thinners. CT shows left temporal mass with cystic and solid components measuring 3.5 x 3.4 x 4.2 cm. Surrounding vasogenic edema and 5 mm of midline shift noted. Empiric Decadron ordered. Images pushed her [facility] for review. Case discussed with Dr. Kang of [facility], who requested that patient be sent tonight to the hospital and plans to operate tomorrow morning. Agreed with Decadron and requested additional 1000 mg of IV Keppra be administered, which was ordered. Family updated of MRI results and neurosurgical recommendations, they are in agreement with transfer and operation at this time. Critical Care Time Critical Care Time Critical Care Time: Yes Total Critical Care Time: 33 Attestation: Brain mass with midline shift, vasogenic edema requiring emergent transfer to higher level of care, neurosurgical consult, Decadron, IV antiepileptics. Discharge Plan Departure Patient Disposition: [facility] Clinical Impression: Brain mass Prescriptions: No Action omega-3 acid ethyl esters 1 gram capsule See Rx Instructions .ROUTE .COMPLEX Qty: 180 1RF Dose Instruction: TAKE 2 CAPSULES BY MOUTH DAILY Rx Instructions: TAKE 2 CAPSULES BY MOUTH DAILY fenofibric acid (choline) 135 mg capsule,delayed release(DR/EC) See Rx Instructions .ROUTE .COMPLEX Qty: 90 1RF Dose Instruction: TAKE 1 CAPSULE BY MOUTH DAILY Rx Instructions: TAKE 1 CAPSULE BY MOUTH DAILY atorvastatin 80 mg tablet 80 mg PO DAILY Qty: 90 2RF lisinopril 2.5 mg tablet See Rx Instructions .ROUTE .COMPLEX Qty: 90 1RF Dose Instruction: TAKE 1 TABLET BY MOUTH DAILY Rx Instructions: TAKE 1 TABLET BY MOUTH DAILY citalopram 20 mg tablet 20 mg PO DAILY Qty: 90 0RF Jardiance 25 mg tablet 25 mg PO DAILY Qty: 90 0RF metformin 1,000 mg tablet 1,000 mg PO BID Qty: 180 0RF Referrals: Isis Molina MD [Primary Care Provider] -
--- NOTE | 2023-07-27 20:32 | PC.NURSE ---
Left with MRI to go get scan.
--- NOTE | 2023-07-27 20:38 | PC.NURSE ---
Pt speech is slightly garbled but more so is having inappropriate answers to questions. For example, when asking where the pt is from, she states [id number] and then when asked again she states I told you. [address]. Pt is calm and cooperative with staff and does follow commands well.
[2023-07-27 20:41] LABS: Add Manual Diff / Slide Review NO; Basophils Absolute Auto 0 /uL (0-100); Basophils Percent Auto 0.3 % (0-2); Eosinophils Absolute Auto 100 /uL (0-450); Eosinophils Percent Auto 1.1 % (2-4); Hematocrit 39.8 % (36-46); Hemoglobin 13.4 g/dL (12.0-16.0); Lymphocytes Absolute Auto 2100 /uL (1100-4500); Lymphocytes Percent Auto 21.8 % (25-40); Mean Corpuscular HGB Conc 33.7 % (30-36); Mean Corpuscular Hemoglobin 30.8 PG (26-34); Mean Corpuscular Volume 91.3 fL (80-100); Monocytes Absolute Auto 500 /uL (0-900); Monocytes Percent Auto 5.7 % (3-14); Neutrophils Absolute Auto 6800 /uL (1500-7000); Neutrophils Percent Auto 71.1 % (50-75); Platelet Count 239 X10^3/uL (150-400); Red Blood Cell Count 4.36 X10^6/uL (4.0-5.2); White Blood Cell Count 9.5 X10^3/uL (4.5-11.0)
[2023-07-27 20:48] LABS: INR 1.2 (0.9-1.3); Prothrombin Time 13.3 SECONDS (9.4-12.5)
[2023-07-27 20:54] LABS: Alanine Aminotransferase 46 IU/L (<35); Albumin 4.7 g/dL (3.5-5.0); Albumin Globulin Ratio 1.5 (1.0-2.8); Alkaline Phosphatase 47 U/L (38-126); Aspartate Aminotransferase 44 IU/L (14-36); BUN Creatinine Ratio 34.7 (6-22); Bilirubin Total 0.7 mg/dL (0.2-1.3); Blood Urea Nitrogen 34 mg/dL (7-17); Calcium 11.1 mg/dL (8.4-10.2); Carbon Dioxide 24 mmol/L (22-32); Chloride 102 mmol/L (98-107); Estimated Glomerular Filt Rate > 60 mL/min (>60); Globulin 3.2 g/dL (1.7-4.1); Glucose 117 mg/dL (80-110); HEMOLYSIS < 15 (0-50); Lipase 131 U/L (23-300); Potassium 3.9 mmol/L (3.4-5.1); Sodium 139 mmol/L (137-145); Total Protein 7.9 g/dL (6.3-8.2)
[2023-07-27] MEDS: DEXAMETHASONE 10 MG/ML VIAL 8 MG IV (21:29)
[2023-07-27] MEDS: levETIRAcetam 1,000 MG in SODIUM CHLORIDE 0.9% 100 ML 440 MG IV (22:09)
--- NOTE | 2023-07-27 23:36 | PC.NURSE ---
Multiple family members are trading out to visit pt. Pt is still where she was when she arrived in regards to mental status. PERRLA 3mm bilat. NADN. Equal rise and fall of chest. Still answering questions incorrectly.
[2023-07-28] VITALS: BP 133/58; PULSE 76; O2SAT 94
== END 2023-07-28 00:12 | disposition short-term general hospital (02) ==
PROVIDERS: Emergency Provider Emergency Medicine; PCP Family Medicine
DX: G93.89 Other specified disorders of brain (principal); R47.01 Aphasia; Z79.899 Other long term (current) drug therapy
CPT/HCPCS: 36415; 70553; 80053; 83690; 85025; 85610; 96365; 96375; 99284; 99291; A9579; J1100; J1953

== ENCOUNTER 2023-08-25 12:20 | Outpatient (RCR) | payer MEDICARE, SELFPAY ==
--- NOTE | 2023-08-25 16:00 | OT.OP.EVAL ---
Visit Care Team Role Provider Type Isis Molina MD Family Provider Physician Primary Care Provider Specialty: Family Practice Address: [address] [place] [address], [facility], [place], [address] Email: [email or web address] Rima Nesbitt MD Attending Provider Non-Staff Referring Provider Specialty: Physical Medicine and Rehab Address: [address] [place] [address], [id number] Email: Occupational Therapy Initial Evaluation OT Outpatient Adult Evaluation Start: 08/26/23 09:16 Freq: Status: Active Protocol: Document 08/25/23 16:00 AMS (Rec: 08/26/23 09:44 AMS [id number]) General Information - Adult Insurance Information AARP Medicare Visit Start Time 12:25 Visit Stop Time 13:00 Treatment Setting Outpatient Care Note Type Initial Evaluation Identification Confirmed Yes Identification Confirmed By Self; Daughter who goes by Yessy Assessment/Plan Treatment Assessment Naomi is 73 years-old and right hand dominant; she was referred to outpatient OT secondary to brain tumor that was removed 07/28/23 w/ concerns regarding R UE functioning and impaired cognition. She reportedly is receiving outpatient MANNEQUIN DECORATOR and PT. She was accompanied by her daughter, Yessy, to initial evaluation; paperwork was completed by Yessy. Medical history was significant for appendectomy, arthritis, blood pressure concerns, depression , diabetes II, intermittent dizziness, hepatitis, liver disease, memory loss stroke/ TIA, vision problems, (+) cataract surgery, Lasix, plastic surgery. (-) pain was indicated on the Pain Assessment Grid. Naomi reportedly was d/c from on August 18 from and resides with her daughter in a [id number] suite; she received inpatient PT/OT/MANNEQUIN DECORATOR. She has a FWW, tub bench, HSH, a bedside commode, bed alarm. Recent fall reported in the bathroom. She was driving prior, she is not driving now. She has demonstrated confusion w/ microwave and ' surfing' channels on t.v. She was using her cell phone and laying solitaire, doing crosswords, going on facebook and reading prior, she is reportedly not doing these activities now. She is receiving assistance w/ meal prep and assist from her spouse w/ financial systems manager . She is completing dressing tasks (including clasping of bra, donning rings), self feeding using utensils, and toileting without assistance. 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 She does not call for assist and ambulates within home and came to session without mobility AE. She was able to execute transfers without assistance and demonstrated 1 misstep in which she was able to regain her balance without any assist upon departure. Although Naomi identified the month as August, year as 1978, and the day of the week as ( or 'yesterday was Wednesday'), and did not imitate digit opposition, Naomi used dynamic grasp and was able to sign her full first, middle ( Dann), and last name legibly in cursive without assistance and follow directions w/ UE MMT, household appliances salesperson strength testing, and UE motor imitation relative to functional movement patterns (touching top of head, back of head, wrist circles, elbow flexion/ ext, forearm supination/ pronation). She demonstrated overall, good orientation to midline w/ UE functional motor imitation. She demonstrated overall, good symmetrical bilateral UE strength w/ sh flex, sh ext, sh abd/add, sh hor abd/add, elbow flex/ext. Some shaking of distal UEs noted; intermittent throughout treatment session. R household appliances salesperson was 33.0# of force vs 44.0# of force L household appliances salesperson w/ dynamometer II household appliances salesperson strength test w/ elbow in 90 degrees flexion; R lateral pinch was 5.0# of force vs 4.5# of force lateral pinch w/ pinchometer strength testing. Rec that Naomi continues w/ outpt speech, given memory/cognitive concerns. Rec that Naomi continues w/ outpt PT, given reported rec use of FWW w/ mobility and concerns re: balance and recent fall in the bathoom. Based on fine motor observations/orientation to midline/symmetrical UE strength, no further outpt OT is recommended. Rec w/ cont use of self-care AE as per recommended by inpatient therapies. Patient Recommendations Discharge from Occupational Therapy
--- NOTE | 2023-08-26 10:46 | OT.OP.DC ---
Visit Care Team Role Provider Type Isis Molina MD Family Provider Physician Primary Care Provider Address: [address] [place] [address], [address], [place], [address] Email: [email or web address] Rima Nesbitt MD Attending Provider Non-Staff Referring Provider Address: [address] [place] [address], [address] Email: OT Outpatient OT Outpatient Adult Evaluation Start: 08/26/23 09:16 Freq: Status: Active Protocol: Document 08/25/23 16:00 AMS (Rec: 08/26/23 09:44 AMS [id number]) General Information - Adult Visit Information Insurance Information AARP Medicare Session Time Visit Start Time 12:25 Visit Stop Time 13:00 Setting Treatment Setting Outpatient Care Visit Type Note Type Initial Evaluation Identification Identification Confirmed Yes Identification Confirmed By Self; Daughter who goes by Yessy Assessment/Plan Assessment Treatment Assessment Naomi is 73 years-old and right hand dominant; she was referred to outpatient OT secondary to brain tumor that was removed 07/28/23 w/ concerns regarding R UE functioning and impaired cognition. She reportedly is receiving outpatient ANIMAL PHYSIOLOGIST and PT. She was accompanied by her daughter, Yessy, to initial evaluation; paperwork was completed by Yessy. Medical history was significant for appendectomy, arthritis, blood pressure concerns, depression , diabetes II, intermittent dizziness, hepatitis, liver disease, memory loss stroke/ TIA, vision problems, (+) cataract surgery, Lasix, plastic surgery. (-) pain was indicated on the Pain Assessment Grid. Naomi reportedly was d/c from on August 18 from and resides with her daughter in a [id number] suite; she received inpatient PT/OT/ANIMAL PHYSIOLOGIST. She has a FWW, tub bench, HSH, a bedside commode, bed alarm. Recent fall reported in the bathroom. She was driving prior, she is not driving now. She has demonstrated confusion w/ microwave and ' surfing' channels on t.v. She was using her cell phone and laying solitaire, doing crosswords, going on facebook and reading prior, she is reportedly not doing these activities now. She is receiving assistance w/ meal prep and assist from her spouse w/ healthcare financial analyst . She is completing dressing tasks (including clasping of bra, donning rings), self feeding using utensils, and toileting without assistance. 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 She does not call for assist and ambulates within home and came to session without mobility AE. She was able to execute transfers without assistance and demonstrated 1 misstep in which she was able to regain her balance without any assist upon departure. Although Naomi identified the month as August, year as 1980, and the day of the week as ( or 'yesterday was Wednesday'), and did not imitate digit opposition, Naomi used dynamic grasp and was able to sign her full first, middle ( Dann), and last name legibly in cursive without assistance and follow directions w/ UE MMT, ship cleaner strength testing, and UE motor imitation relative to functional movement patterns (touching top of head, back of head, wrist circles, elbow flexion/ ext, forearm supination/ pronation). She demonstrated overall, good orientation to midline w/ UE functional motor imitation. She demonstrated overall, good symmetrical bilateral UE strength w/ sh flex, sh ext, sh abd/add, sh hor abd/add, elbow flex/ext. Some shaking of distal UEs noted; intermittent throughout treatment session. R ship cleaner was 33.0# of force vs 44.0# of force L ship cleaner w/ dynamometer II ship cleaner strength test w/ elbow in 90 degrees flexion; R lateral pinch was 5.0# of force vs 4.5# of force lateral pinch w/ pinchometer strength testing. Rec that Naomi continues w/ outpt speech, given memory/cognitive concerns. Rec that Naomi continues w/ outpt PT, given reported rec use of FWW w/ mobility and concerns re: balance and recent fall in the bathoom. Based on fine motor observations/orientation to midline/symmetrical UE strength, no further outpt OT is recommended. Rec w/ cont use of self-care AE as per recommended by inpatient therapies. Plan Patient Recommendations Discharge from Occupational Therapy Functional Wrist/Hand Scan Hand Side Sensory Assessment Sensory Profile2
== END 2023-08-30 10:33 | disposition home or self-care (01) ==
LOC: OT 12:20
PROVIDERS: Family Provider Family Medicine; PCP Family Medicine; Referring Provider Student in an Organized Health Care Education/Training Program; Visit Provider Student in an Organized Health Care Education/Training Program
DX: C71.9 Malignant neoplasm of brain, unspecified (principal)
CPT/HCPCS: 97165

== ENCOUNTER 2023-09-03 09:45 | Outpatient (RCR) | payer MEDICARE, SELFPAY ==
--- NOTE | 2023-08-24 09:02 | ST.OPIE ---
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 Rima Nesbitt Reason for Referral Cognitive-linguistic eval s/p L temporal craniotomy for tumor resection Setting Assessment Location Outpatient Care Visit Type Note Type Initial evaluation Next Note Type Next Note Type Treatment Note Patient Information Identification Type Name Patient History Pt is a 73 year old female seen this date for cognitive- linguistic evaluation s/p left temporal craniotomy for tumor resection on 07/28/23. She is accompanied by her daugther who answered all questions and provided case history. Pt lives in a [id number]-[id number]-mmz suite at her daughters house. Her daughter reports she was noticing a rapid decline in her speech and cognition around , specifically the Pt speaking with random words and word salad. She had and MRI on , which showed a brain tumor. 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 Pt was discharged from [facility] on 08/18/23. Her daughter reports the tumor was on the speech center of the brain. Occupation Status Retired nurse Previous Therapy Previous Speech-Language Therapy Yes History of Therapy She received speech therapy while in the hospital for about a week Subjective Patient Report Patient was responsive and alert, however confused. Her daughter states she continues having communication and cognitive difficulties. She says she can talk in sentences , but she isn't sure she can comprehend much. Her daughter reports she would like her to be able to communicate better. Assessment Oral Motor Examination Completed No Results Right sided facial droop observed. Informal Assessment Receptive Language Normal No Receptive Language Impairment(s) Comprehension of simple yes/no questions,Comprehension of complex yes/no questions, Following 1-step commands Expressive Language Normal No Expressive Language Impairment(s) Expression of basic wants/ needs,Expression of complex thoughts/ideas Speech Normal Yes Cognition Normal No Cognitive Impairment(s) Orientation,Attention,Short- term memory,Executive functioning,Problem solving, Thought organization,Safety awareness Formal Assessment Administration Complete Results ST administered the SLUMs with Pt scoring a total 07/27 indicating a severe cognitive- linguistic impairment. She demonstrated difficulties with short term memory, immediate memory recall, temporal memory , and working memory. She demonstrated deficits in executive functions. She was able to identify the largest shape given a choice of 3. When asked waht state we are in she benefited from multiple choice cues. She produced 1 animal during generative naming task. Pt daughter filled out a functional activities questionnaire from the [employer] in order to assess what ADLs/ IADLs Pt has trouble with at home. She indicated that the Pt is dependent with most tasks, such as writinig checks , traveling, remembering appointments, keeping track of current events. She states she requires some assistance with heating water/making coffee and working on a hobby. Pt's daughter reports they have a baby monitor camera in the Pt's apartment. Her daughter reports she has difficulty following steps how to work the [employer] machine and how to watch direct TV. She says she enjoys watching TV for a hobby and lets the dogs out. Her daughter reports she would like her mom to be able to communicate wants and needs more effectively. Additionally, ST informally assessed expressive language showing Pt the cookie theft picture. Pt stated They are spilling stuff right now, but to turn it over, cookie jar. She demonstrated generic short phrases related to details in the pictures and had trouble answering questions and communicating what is happening in the whole picture . She had limited expressive language. ST to administer further speech/language testing during next session. Findings/Results Language Function Moderately-severely impaired Cognitive Function Severely impaired Findings Pt presents with mod-severe cognitive-linguistic impairment (R41.841) Cognitive Communication Deficits Self-awareness of Cognitive- No awareness Communication Deficits Prognosis Prognosis Fair Based on Cognitive status Plan of Care Speech-Language Treatment Yes Frequency 1x/week Duration 3 months Patient/Caregiver Education Described results of evaluation,Family/caregivers expressed understanding of evaluation,Family/caregivers expressed agreement with goals and treatment plan,Family/ caregivers require further education/training Short Term Goals STG 1: Patient will demonstrate increased short term recall for functional/ daily life information with 80 % of opportunities given environmental modifications implemented and by using visual aids in order to increase safety during ADLs. STG 2: Patient will utilize low tech AAC and visual aids to communicate basic wants/ needs 75% given moderate verbal and visual cues. Fdc Goals LTG 1: Patient will develop functional, cognitive- linguistic-based skills and utilize compensatory strategies to communicate wants and needs effectively to different conversational partners, maintain safety and participate socially in functional living environment
--- NOTE | 2023-08-24 09:02 | ST.OPPOC ---
Physical, Occupational & Speech Therapy At [facility] Visit Care Team Role Provider Type Isis Molina MD Family Provider Physician Primary Care Provider Address: [address] [place] [address], [address], [place], [address] Rima Nesbitt MD Attending Provider Non-Staff Referring Provider Address: [address] [place], [address] Speech Pathology Plan of Care Referring Provider Dr. Rima Nesbitt Patient History Pt is a 73 year old female seen this date for cognitive-linguistic evaluation s/p left temporal craniotomy for tumor resection on . She is accompanied by her daugther who answered all questions and provided case history . Pt lives in a tpscci-ze-uld suite at her daughters house. Her daughter reports she was noticing a rapid decline in her speech and cognition around , specifically the Pt speaking with random words and word salad. She had and MRI on 07/27/23, which showed a brain tumor. 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 Pt was discharged from [facility] on 08/18/23. Her daughter reports the tumor was on the speech center of the brain. Self-awareness of Cognitive- No awareness Communication Deficits Short Term Goals STG 1: Patient will demonstrate increased short term recall for functional/daily life information with 80% of opportunities given environmental modifications implemented and by using visual aids in order to increase safety during ADLs. STG 2: Patient will utilize low tech AAC and visual aids to communicate basic wants/needs 75% given moderate verbal and visual cues. Intermediate Goals LTG 1: Patient will develop functional, axdwgabzk-rjjrymhpsi-qcivg skills and utilize compensatory strategies to communicate wants and needs effectively to different conversational partners, maintain safety and participate socially in functional living environment Comment: Electronically Signed by: DORIAN Mclean 08/24/23 0902 If you are in agreement with this Plan of Care, please return a signed and dated copy. I have reviewed this Plan of Care and certify that the skilled therapy services above are required to meet the patient?s needs. Physician Signature Date Printed Name and Credentials Clinical Instructor Signature Printed Name and Credentials
--- NOTE | 2023-09-03 10:39 | ST.OPTN ---
Visit Care Team Role Provider Type Isis Molina MD Family Provider Physician Primary Care Provider Address: [address] [place] [address], [address], [place], [address] Rima Nesbitt MD Attending Provider Non-Staff Referring Provider Address: [address] [place], [address] FREIGHT FLOW SALES LEADER Treatment Note FREIGHT FLOW SALES LEADER Treatment Note Start: 09/03/23 10:20 Freq: Status: Active Protocol: Document 09/03/23 10:20 MA (Rec: 09/03/23 10:39 MA [id number]) Speech Pathology Treatment Note Session Time Visit Start Time 09:45 Visit Stop Time 10:20 Total Visit Minutes 35 Visit Information Visit Number 2 Setting Treatment Setting Outpatient Care Next Note Type Next Note Type Treatment Note General Information Patient History Pt is a 73 year old female seen this date for cognitive- linguistic evaluation s/p left temporal craniotomy for tumor resection on 07/28/23. She is accompanied by her daugther who answered all questions and provided case history. Pt lives in a [id number]-[id number] suite at her daughters [place]. Her daughter reports she was noticing a rapid decline in her speech and cognition around , specifically the Pt speaking with random words and word salad. She had and MRI on , which showed a brain tumor. 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 Pt was discharged from [facility] on 08/18/23. Her daughter reports the tumor was on the speech center of the brain. Subjective Observations/Patient Presentation Pt arrived on time and was accompanied by her daughter. Objective Short Term Goals STG 1: Patient will demonstrate increased short term recall for functional/ daily life information with 80 % of opportunities given environmental modifications implemented and by using visual aids in order to increase safety during ADLs. STG 2: Patient will utilize low tech AAC and visual aids to communicate basic wants/ needs 75% given moderate verbal and visual cues. Veneer Sorter Goals LTG 1: Patient will develop functional, cognitive- linguistic-based skills and utilize compensatory strategies to communicate wants and needs effectively to different conversational partners, maintain safety and participate socially in functional living environment Treatment Activities MAST, internal and external memory strategies Assessment Patient Response to Treatment Fair Rehab Potential Fair Impairments Identified Expressive language,Cognitive communication Assessment of Improvement ST administered the [place] Aphasia Screening Test (MAST) in order to further assess receptive/ expressive language. Pt scored an overall score of 90/100, and more specifically 48/50 for expressive language and 42 /50 for receptive language. She demonstrated most deficits with y/n accuracy, specifically more complex questions and following instructions both verbally and auditorily that involved before/after. She demonstrated strengths in naming, repetition, writing and object recognition. ST reviewed with Pt and her daughter internal and external memory aids, as well as naming strategies. ST assessed memory recall of recent events utilizing questions related to what she did this morning. Pt demonstrated difficulties recalling recent events and benefiting from semantic cues. She recalled 1/ 3 tasks she did this morning, demonstating word finding difficulties. She was able to state she watched TV with 3 people but could not recall good morning herber. ST provided a notebook and recommended Pt try and write down daily information to assist with recall. ST assisted Pt with first entry by providing cues. Pt able to write down the date and that she came to speech therapy provided max cues. ST educated Pt daugther to provide visual and auditory reminder cues.
--- NOTE | 2023-09-06 16:32 | ST.OPDS ---
Visit Care Team Role Provider Type Isis Molina MD Family Provider Physician Primary Care Provider Address: [address] [place] [address], [facility], [place], [address] Rima Nesbitt MD Attending Provider Non-Staff Referring Provider Address: [address] [place], [address] FINANCIAL SERVICES AUDITOR Treatment Note FINANCIAL SERVICES AUDITOR Treatment Note Start: 09/03/23 10:20 Freq: Status: Active Protocol: Document 09/03/23 10:20 MA (Rec: 09/03/23 10:39 MA [id number]) Speech Pathology Treatment Note Session Time Visit Start Time 09:45 Visit Stop Time 10:20 Total Visit Minutes 35 Visit Information Visit Number 2 Setting Treatment Setting Outpatient Care Next Note Type Next Note Type Treatment Note General Information Patient History Pt is a 73 year old female seen this date for cognitive- linguistic evaluation s/p left temporal craniotomy for tumor resection on 07/28/23. She is accompanied by her daugther who answered all questions and provided case history. Pt lives in a [id number]-[id number]-jwo suite at her daughters [place]. Her daughter reports she was noticing a rapid decline in her speech and cognition around , specifically the Pt speaking with random words and word salad. She had and MRI on , which showed a brain tumor. 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 Pt was discharged from [facility] on 08/18/23. Her daughter reports the tumor was on the speech center of the brain. Subjective Observations/Patient Presentation Pt arrived on time and was accompanied by her daughter. Objective Short Term Goals STG 1: Patient will demonstrate increased short term recall for functional/ daily life information with 80 % of opportunities given environmental modifications implemented and by using visual aids in order to increase safety during ADLs.- NOT MET STG 2: Patient will utilize low tech AAC and visual aids to communicate basic wants/ needs 75% given moderate verbal and visual cues.- NOT MET Market Development Manager Goals LTG 1: Patient will develop functional, cognitive- linguistic-based skills and utilize compensatory strategies to communicate wants and needs effectively to different conversational partners, maintain safety and participate socially in functional living environment- NOT MET Treatment Activities MAST, internal and external memory strategies Assessment Patient Response to Treatment Fair Rehab Potential Fair Impairments Identified Expressive language,Cognitive communication Assessment of Improvement Pt discharged from d/t Pt daughter calling and cancelling all appointments and stating her mother does not want speech therapy anymore.
== END 2023-09-10 08:07 | disposition home or self-care (01) ==
LOC: SP 09:45
PROVIDERS: Family Provider Family Medicine; PCP Family Medicine; Referring Provider Student in an Organized Health Care Education/Training Program; Visit Provider Student in an Organized Health Care Education/Training Program
DX: C71.9 Malignant neoplasm of brain, unspecified (principal)
CPT/HCPCS: 92507; 92523

== ENCOUNTER → 2024-01-07 10:46 | Outpatient (CLI) | payer MEDICARE, SELFPAY ==
[2024-01-07 11:05] LABS: Appearance Urine UA CLEAR; Bilirubin Urine UA NEGATIVE (NEGATIVE); Color Urine UA YELLOW; Glucose Urine UA 2+ g/dL (Negative); Ketones Urine UA NEGATIVE (NEGATIVE); Leukocyte Esterase Urine UA TRACE (NEGATIVE); Nitrite Urine UA NEGATIVE (Negative); Occult Blood Urine UA NEGATIVE (Negative); Protein Urine UA 1+ (Negative); Specific Gravity Urine UA >=1.030 (1.000-1.035)
[2024-01-07 12:03] LABS: pH Urine UA 5.5 (4.5-8.0)
[2024-01-07 12:04] LABS: Bacteria Urine Occasional (0-1); Culture Indicated Urine Cult Not Indicated; Mucus Urine 1+ (Negative); RBC Urine 0-1/HPF (0-5/HPF); Squamous Epithelial Cell Urine 5-10 /HPF (0-5/HPF); Urine Volume 10mL (spun); WBC Urine 5-10/HPF (0-5/HPF)
== END ==
PROVIDERS: Family Provider Family Medicine; PCP Family Medicine; Referring Provider Family Medicine; Visit Provider Family Medicine
DX: R41.0 Disorientation, unspecified (principal)
CPT/HCPCS: 81001; 87086